=== PATIENT | female | born 1990 | race Caucasian/White ===

== ENCOUNTER → 2016-05-09 | Outpatient (CLI) | payer BC, OTHER ==
--- NOTE | 2016-05-09 12:50 | REP ---
Clinical: Occipital neuralgia . Technique: AP, lateral, flexion/extension, bilateral oblique, swimmers and open-mouth views. Findings: Alignment and lordosis is maintained. There is no evidence for acute fracture / compression injury or subluxation. No significant degenerative changes are appreciated. Oblique views demonstrate patent neural foramen. Open mouth view demonstrates normal C1-C2 articulation and odontoid process. Impression: Normal cervical spine series. Signed by Josh Diane MD 05/09/2016 12:42 P
--- NOTE | 2016-05-09 12:52 | REP ---
Clinical: Back pain and spondylosis. Technique: AP, lateral, bilateral oblique, flexion, extension, and coned-down views. Findings: Alignment and lordosis is maintained. The vertebral bodies including transverse process and spinous processes are intact and normal. There is no evidence for acute fracture / compression injury or subluxation. No evidence for spondylolysis or spondylolisthesis. No significant degenerative change is noted. Impression: Normal lumbosacral spine radiograph series. Please refer to recent MRI dated 03/28/2016 for specific findings related to intervertebral disc disease Signed by Josh Diane MD 05/09/2016 12:44 P
== END ==
LOC: M LAB 12:10
PROVIDERS: ATTEND Neurological Surgery
DX: M54.81 Occipital neuralgia (principal)